=== PATIENT | female | born 1975 | race Asian ===

== ENCOUNTER → 2017-03-22 | Outpatient (CLI) | payer OTHER | END | disposition home or self-care (01) | LOC: CFH 10:30 → EDSTATUS 11:00 | PROVIDERS: ATTEND Nurse Practitioner Family | DX: K74.60 Unspecified cirrhosis of liver (principal); B19.10 Unspecified viral hepatitis B without hepatic coma | CPT/HCPCS: 76700 ==

== ENCOUNTER → 2017-10-11 | Outpatient (CLI) | payer OTHER | END | disposition home or self-care (01) | LOC: CFH 10:35 | PROVIDERS: ATTEND Internal Medicine | DX: B19.10 Unspecified viral hepatitis B without hepatic coma (principal); K74.60 Unspecified cirrhosis of liver | CPT/HCPCS: 76700 ==

== ENCOUNTER → 2018-01-31 | Outpatient (CLI) | payer OTHER | LOC: CFH 12:33 | PROVIDERS: ATTEND Family Medicine | DX: N63.20 Unspecified lump in the left breast, unspecified quadrant (principal) | CPT/HCPCS: 77065 ==

== ENCOUNTER → 2018-03-21 | Outpatient (CLI) | payer OTHER ==
[~2018-03-21] MED LIST: LIDOCAINE 1%, 20ML ONE; SODIUM BICARBONATE 4.2%, 5ML ONE
== END | disposition home or self-care (01) ==
LOC: CFH 09:52
PROVIDERS: ATTEND Family Medicine
DX: N63.24 Unspecified lump in the left breast, lower inner quadrant (principal)
CPT/HCPCS: 19083; 88305; J3490

== ENCOUNTER → 2018-04-24 | Outpatient (CLI) | payer OTHER ==
[~2018-04-24] MED LIST changes: +HYDR-3240 PO; -LIDOCAINE 1%, 20ML ONE; +NONE PER PT; -SODIUM BICARBONATE 4.2%, 5ML ONE
== END | disposition home or self-care (01) ==
LOC: STAR 11:23
PROVIDERS: ATTEND Surgery
DX: Z02.9 Encounter for administrative examinations, unspecified (principal)

== ENCOUNTER 2018-04-30 05:57 | Day surgery (SDC) | payer OTHER ==
[~2018-04-30] VITALS: Ht 154.9 cm; Wt 54.5 kg
[~2018-04-30 05:57] MED LIST changes: -HYDR-3240 PO
[2018-04-30] MEDS ORDERED: EPINEPHRINE 1 MG/ML, 1ML ONE (06:14)
[2018-04-30] MEDS ORDERED: BUPIVACAINE/PF 0.25% ONE (06:14)
[2018-04-30 06:46] VITALS: BP 121/83
[2018-04-30] MEDS ORDERED: LACTATED RINGERS 1,000 ML IV SCH (06:49)
[2018-04-30 07:06] LABS: HCG UR SG 1.025 (1.003-1.030)
[2018-04-30] MEDS ORDERED: MIDAZOLAM 1 MG/ML, 2ML ONE (08:08)
[2018-04-30] MEDS ORDERED: FENTANYL PF 100 MCG/2ML ONE (08:08)
[2018-04-30] MEDS ORDERED: SCOPOLAMINE PATCH, 1.5MG PATCH.TD72 TD ONE ×2 (08:16→08:30)
[2018-04-30] MEDS ORDERED: OxyconTIN ER 10 MG TAB.ER ONE (08:17)
[2018-04-30] MEDS ORDERED: ONDANSETRON ODT 8 MG ONE (08:17)
[2018-04-30] MEDS ORDERED: ACETAMINOPHEN 500 MG TABLET ONE (08:17)
[2018-04-30] MEDS ORDERED: DEXAMETHASONE 4 MG/ML, 1ML ONE (08:25)
[2018-04-30] MEDS ORDERED: PROPOFOL 10 MG/ML, 20ML ONE (08:25)
[2018-04-30] MEDS ORDERED: CEFAZOLIN 1,000 MG ONE (08:25)
[2018-04-30] MEDS ORDERED: hydrALAzine 20 MG/ML, 1ML IV PRN (08:30)
[2018-04-30] MEDS ORDERED: MORPHINE SULFATE 4 MG/ML, 1ML IVPush PRN (08:30)
[2018-04-30] MEDS ORDERED: PROMETHAZINE 25 MG/ML, 1ML IV PRN (08:30)
[2018-04-30] MEDS ORDERED: ACETAMINOPHEN 500 MG TABLET PO ONE (08:30)
[2018-04-30] MEDS ORDERED: MEPERIDINE/PF 25MG/0.5ML IVPush PRN (08:30)
[2018-04-30] MEDS ORDERED: LABETALOL 5MG/ML, 20ML IV PRN (08:30)
[2018-04-30] MEDS ORDERED: OxyconTIN ER 10 MG TAB.ER PO ONE (08:30)
[2018-04-30] MEDS ORDERED: OXYcodone 5 MG/5 ML ORAL.SOL UDC PO PRN (08:30)
[2018-04-30] MEDS ORDERED: ONDANSETRON ODT 8 MG PO PRN (08:30)
[2018-04-30] MEDS ORDERED: ONDANSETRON ODT 8 MG PO ONE (08:30)
[2018-04-30] MEDS ORDERED: FENTANYL PF 100 MCG/2ML IV PRN (08:30)
[2018-04-30] MEDS ORDERED: ALBUTEROL SULFATE 2.5 MG/3 ML NPPB PRN (08:30)
[2018-04-30] MEDS ORDERED: PROMETHAZINE 12.5 MG SUPP PR PRN (08:30)
[2018-04-30] MEDS ORDERED: MIDAZOLAM 1 MG/ML, 2ML IV PRN (08:30)
[2018-04-30] MEDS ORDERED: HYDR-3240 PO (10:11)
== END 2018-04-30 11:20 ==
LOC: OUT 05:57
PROVIDERS: ATTEND Surgery
DX: D24.2 Benign neoplasm of left breast (principal); Z98.890 Other specified postprocedural states
CPT/HCPCS: 19120; 81025; 88305; J0171; J0690; J1100; J2250; J2704; J3010; J3490; J7120; Q0162

== ENCOUNTER → 2018-12-04 | Outpatient (CLI) | payer OTHER ==
[~2018-12-04] MED LIST changes: +HYDR-3240 PO
== END | disposition home or self-care (01) ==
LOC: CFH 11:02
PROVIDERS: ATTEND Internal Medicine
DX: K74.60 Unspecified cirrhosis of liver (principal); B19.10 Unspecified viral hepatitis B without hepatic coma
CPT/HCPCS: 76700

== ENCOUNTER → 2020-05-06 | Outpatient (CLI) | payer OTHER | END | disposition home or self-care (01) | LOC: CFH 10:34 | PROVIDERS: ATTEND Internal Medicine | DX: K74.60 Unspecified cirrhosis of liver (principal) | CPT/HCPCS: 76700 ==

== ENCOUNTER → 2020-12-09 | Outpatient (CLI) | payer OTHER | END | disposition home or self-care (01) | LOC: RAD 09:36 | PROVIDERS: ATTEND Internal Medicine | DX: B18.1 Chronic viral hepatitis B without delta-agent (principal); K74.60 Unspecified cirrhosis of liver | CPT/HCPCS: 76700 ==

== ENCOUNTER 2021-08-11 09:53 | Outpatient (CLI) | payer OTHER ==
[~2021-08-11 09:53] MED LIST changes: +HYDR-2214 PO; -HYDR-3240 PO
== END 2021-08-11 23:59 | disposition home or self-care (01) ==
LOC: RAD 09:53
PROVIDERS: ATTEND Internal Medicine
DX: B18.1 Chronic viral hepatitis B without delta-agent (principal)
CPT/HCPCS: 76700